=== PATIENT | female | born 1980 | race Two or more races ===

== ENCOUNTER → 2025-03-13 | Outpatient (CLI) | payer MEDICAID, SELFPAY ==
--- NOTE | 2025-03-13 09:15 | XR_ITS ---
Examination: Breast ultrasound, unilateral, right complete Date and time of exam: March 13, 2025 0934 hours Comparison 05/31/2024 INDICATION: Right breast sonogram 05/31/2024 9:00 nodule 14 x 10 mm, 9:00 nodule 8 x 6 mm, patient states right breast pain beginning 2 days ago Technique: Real-time timmons scale ultrasonographic imaging performed right breast including all 4 quadrants as well as nipple retroareolar and axillary region. Findings: 9:00 nodule circumscribed 5 x 5 mm 10:00 nodule circumscribed 7 x 7 mm 10:00 nodule lobular margins 13 x 9 mm IMPRESSION: BI-RADS Category 3: Probably benign findings One additional 6 month right breast sonogram follow-up is needed to document stability of 10:00 nodules
== END | disposition home or self-care (01) ==
LOC: CDIM 09:12
DX: N63.15 Unspecified lump in the right breast, overlapping quadrants (principal); N63.11 Unspecified lump in the right breast, upper outer quadrant
CPT/HCPCS: 76641